=== PATIENT | female | born 1975 | race Two or more races ===

== ENCOUNTER 2021-02-01 08:04 | Day surgery (SDC) | payer OTHER ==
[~2021-02-01] VITALS: Ht 154.9 cm; Wt 91.9 kg
[2021-02-01] MEDS ORDERED: CEFOTETAN PMX 2GM/50ML 50 ML IVPB ONE (10:00)
[2021-02-01] MEDS ORDERED: LEVO75TA5 PO (10:07)
[2021-02-01 10:16] LABS: HCG UR SG 1.022 (1.003-1.030)
[2021-02-01] MEDS ORDERED: LACTATED RINGERS 1,000 ML IV SCH (10:30)
[2021-02-01] MEDS ORDERED: CHLORHEXIDINE 15 ML UDC PO ONE (10:30)
[2021-02-01 10:36] LABS: BASOPHILS % (AUTO) 1 % (0-1); EOSINOPHILS % (AUTO) 3 % (1-7); LYMPHOCYTES % (AUTO) 29 % (22-44); MEAN CORPUSCULAR HEMOGLOBIN 31.2 pg (27.0-34.8); MEAN PLATELET VOLUME 8.1 fL (7.4-10.4); MONOCYTES % (AUTO) 5 % (2-9); NEUTROPHILS % (AUTO) 62 % (42-75); PLATELET COUNT 302 x10^3/uL (130-400); RED CELL DISTRIBUTION WIDTH 13.1 % (9.6-15.2)
[2021-02-01 10:39] VITALS: BP 101/71
[2021-02-01 10:42] LABS: MD NO
[2021-02-01 10:46] LABS: ALANINE AMINOTRANSFERASE 39 U/L (12-78); ALBUMIN 4.1 g/dL (3.4-5.0); ANION GAP 7 mmol/L (5-15); CALCIUM 8.9 mg/dL (8.5-10.1); CHLORIDE 107 mmol/L (98-107); CREATININE 0.83 mg/dL (0.55-1.02)
[2021-02-01 10:48] LABS: ALKALINE PHOSPHATASE 103 U/L (45-117); BILIRUBIN,TOTAL 1.5 mg/dL (0.2-1.0); TOTAL PROTEIN 8.5 g/dL (6.4-8.2)
[2021-02-01] MEDS ORDERED: FENTANYL PF 250 MCG/5ML ONE (10:50)
[2021-02-01] MEDS ORDERED: MIDAZOLAM 1 MG/ML, 2ML ONE (10:50)
[2021-02-01] MEDS ORDERED: INDOCYANINE GREEN 25 MG VIAL ONE (11:04)
[2021-02-01] MEDS ORDERED: BUPIVACAINE/PF 0.25% ONE (11:04)
[2021-02-01] MEDS ORDERED: EPINEPHRINE 1 MG/ML, 1ML ONE (11:04)
[2021-02-01 11:08] LABS: INTERNATIONAL NORMALIZED RATIO 1.02 (0.93-1.1); PROTHROMBIN TIME 10.9 Seconds (9.6-11.5)
[2021-02-01] MEDS ORDERED: PHENYLEPHRINE 10 MG/ML ONE (11:34)
[2021-02-01] MEDS ORDERED: KETOROLAC 30 MG/1 ML ONE (11:34)
[2021-02-01] MEDS ORDERED: EPHEDRINE 50 MG/ML, 1ML ONE (11:34)
[2021-02-01] MEDS ORDERED: ALBUTEROL SULFATE 2.5 MG/3 ML NPPB PRN (13:00)
[2021-02-01] MEDS ORDERED: PROMETHAZINE 25 MG/ML, 1ML IVPush PRN (13:00)
[2021-02-01] MEDS ORDERED: FENTANYL PF 100 MCG/2ML IV PRN (13:00)
[2021-02-01] MEDS ORDERED: LABETALOL 5MG/ML, 20ML IV PRN (13:00)
[2021-02-01] MEDS ORDERED: MEPERIDINE/PF 25MG/0.5ML IVPush PRN (13:00)
[2021-02-01] MEDS ORDERED: OXYcodone 5 MG/5 ML ORAL.SOL UDC PO PRN (13:00)
[2021-02-01] MEDS ORDERED: LORazepam 2 MG/ML, 1ML IVPush PRN (13:00)
[2021-02-01] MEDS ORDERED: HYDROmorphone 1 MG/ML, 1ML INJ IVPush PRN (13:00)
[2021-02-01] MEDS ORDERED: ACETAMINOPHEN 325 MG TABLET PO PRN (13:00)
[2021-02-01] MEDS ORDERED: METHOCARBAMOL 1,000 MG in DEXTROSE 5% 100 ML IV PRN (13:00)
[2021-02-01] MEDS ORDERED: hydrALAzine 20 MG/ML, 1ML IV PRN (13:00)
[2021-02-01] MEDS ORDERED: INTERCEED 3 X 4 INCH DRESSING ONE (13:42)
[2021-02-01] MEDS ORDERED: CEFAZOLIN 1,000 MG ONE (13:59)
[2021-02-01] MEDS ORDERED: NEOSTIGMINE 1 MG/ML, 10ML ONE (13:59)
[2021-02-01] MEDS ORDERED: ROCURONIUM 10MG/ML,5ML ONE (13:59)
[2021-02-01] MEDS ORDERED: GLYCOPYRROLATE 0.2MG/1ML, 5ML ONE (13:59)
[2021-02-01] MEDS ORDERED: PROPOFOL 10 MG/ML, 20ML ONE (13:59)
[2021-02-01] MEDS ORDERED: ONDANSETRON 2MG/ML, 2ML ONE (13:59)
[2021-02-01] MEDS ORDERED: DEXAMETHASONE 4 MG/ML, 1ML ONE (13:59)
[2021-02-01] MEDS ORDERED: FENTANYL PF 100 MCG/2ML ONE (15:09)
[2021-02-01] MEDS ORDERED: OXYcodone 5 MG/5 ML ORAL.SOL UDC ONE (15:09)
[2021-02-01] MEDS ORDERED: HYDROmorphone 1 MG/ML, 1ML INJ ONE (15:52)
== END 2021-02-01 18:10 | disposition home or self-care (01) ==
LOC: OUT 08:04
PROVIDERS: ATTEND Obstetrics & Gynecology
DX: R19.01 Right upper quadrant abdominal swelling, mass and lump (principal); D27.1 Benign neoplasm of left ovary; D27.0 Benign neoplasm of right ovary; N73.6 Female pelvic peritoneal adhesions (postinfective); R97.1 Elevated cancer antigen 125 [CA 125]; E03.9 Hypothyroidism, unspecified; E66.9 Obesity, unspecified; Z20.822 Contact with and (suspected) exposure to COVID-19; Z68.41 Body mass index [BMI] 40.0-44.9, adult; Z79.01 Long term (current) use of anticoagulants; Z79.890 Hormone replacement therapy; Z79.899 Other long term (current) drug therapy; Z90.49 Acquired absence of other specified parts of digestive tract; Z97.5 Presence of (intrauterine) contraceptive device; Z80.42 Family history of malignant neoplasm of prostate
CPT/HCPCS: 36415; 58661; 58662; 71045; 80053; 81025; 85025; 85610; 85730; 86304; 86850; 86900; 86923; 87635; 88305; 93005; C1765; J0171; J0690; J1100; J1170; J1885; J2250; J2370; J2405; J2704; J2710; J3010; J7120; S2900